=== PATIENT | female | born 1935 | race Caucasian/White ===

== ENCOUNTER 2016-09-25 08:06 | Outpatient (CLI) | payer MEDICARE | END 2016-09-25 08:07 | disposition home or self-care (01) | DX: E11.9 Type 2 diabetes mellitus without complications (principal) ==

== ENCOUNTER 2016-10-10 08:21 | Outpatient (CLI) | payer MEDICARE | END 2016-10-10 08:22 | disposition home or self-care (01) | DX: Z12.31 Encounter for screening mammogram for malignant neoplasm of breast (principal) ==

== ENCOUNTER 2016-10-19 10:27 | Outpatient (CLI) | payer MEDICARE | END 2016-10-19 10:28 | disposition home or self-care (01) | DX: M19.071 Primary osteoarthritis, right ankle and foot (principal) ==

== ENCOUNTER 2017-10-05 08:00 | Outpatient (CLI) | payer MEDICARE ==
[2017-10-05 12:38] LABS: EOSINOPHILS # (AUTO) 0.3 10^3/uL (0.0-0.7); EOSINOPHILS % (AUTO) 7.9 %; HGB - HEMOGLOBIN 12.5 g/dL (12.0-16.0); LYMPHOCYTES # (AUTO) 1.7 10^3/uL (1.5-3.5); LYMPHOCYTES % (AUTO) 39.9 %; MEAN CORPUSCULAR HEMOGLOBIN 27.1 pg (27.0-31.0); MEAN CORPUSCULAR HGB CONC 32.9 g/dL (32.0-36.0); MEAN CORPUSCULAR VOLUME 82.3 fL (81.0-99.0); MEAN PLATELET VOLUME 8.3 fL (7.9-10.8); MONOCYTES # (AUTO) 0.3 10^3/uL (0.0-1.0); MONOCYTES % (AUTO) 7.7 %; NEUTROPHILS # (AUTO) 1.8 10^3/uL (1.5-6.6); NEUTROPHILS % (AUTO) 43.5 %; PLT - PLATELET COUNT 212 10^3/uL (130-450); RED BLOOD COUNT 4.61 10^6/uL (4.20-5.40); RED CELL DISTRIBUTION WIDTH 15.3 % (12.0-15.0); WHITE BLOOD COUNT 4.2 x10^3/uL (4.8-10.8)
[2017-10-05 13:19] LABS: ALBUMIN 3.7 g/dL (3.2-5.5); ALBUMIN/GLOBULIN RATIO 1.3 (1.0-2.2); ALKALINE PHOSPHATASE 52 IU/L (42-121); ALT ALANINE AMINOTRANSFERASE 18 IU/L (10-60); AST ASPARTATE AMINOTRANSFERASE 20 IU/L (10-42); BILIRUBIN,TOTAL 0.5 mg/dL (0.2-1.0); BUN - BLOOD UREA NITROGEN 18 mg/dL (6-20); CALCIUM 8.9 mg/dL (8.5-10.3); CARBON DIOXIDE - CO2 26 mmol/L (21-32); CHLORIDE 106 mmol/L (101-111); CHOL/HDL RATIO 3.1 (<4.4); CHOLESTEROL 190 mg/dL; CREATININE 0.8 mg/dL (0.4-1.0); GFR - MDRD 69 (>89); GLUCOSE 100 mg/dL (70-100); HDL CHOLESTEROL 61 mg/dL; LDL CHOLESTEROL,CALCULATED 108 mg/dL; LDL/HDL RATIO 1.8 (<4.4); SODIUM 138 mmol/L (135-145); TOTAL PROTEIN 6.6 g/dL (6.7-8.2); VLDL CHOLESTEROL 21 mg/dL
[2017-10-05 13:24] LABS: HB2 TOTAL 13.6 g/dL; HEMOGLOBIN A1C 0.54 g/dL; HEMOGLOBIN A1C % 5.8 % (4.6-6.2)
== END 2017-10-05 08:01 | disposition home or self-care (01) ==
LOC: LAB.WCP 08:00
PROVIDERS: ATTEND Physician Assistant Medical
DX: E11.9 Type 2 diabetes mellitus without complications (principal); K52.9 Noninfective gastroenteritis and colitis, unspecified
CPT/HCPCS: 36415; 80053; 80061; 82043; 83036; 83721; 85025

== ENCOUNTER 2018-04-01 08:29 | Outpatient (CLI) | payer MEDICARE ==
[2018-04-01 13:15] LABS: ALBUMIN 3.7 g/dL (3.2-5.5); ALBUMIN/GLOBULIN RATIO 1.2 (1.0-2.2); BILIRUBIN,TOTAL 0.6 mg/dL (0.2-1.0); CALCIUM 8.9 mg/dL (8.5-10.3); CREATININE 0.8 mg/dL (0.4-1.0); TOTAL PROTEIN 6.8 g/dL (6.7-8.2)
[2018-04-01 14:02] LABS: HB2 TOTAL 13.8 g/dL; HEMOGLOBIN A1C 0.5 g/dL; HEMOGLOBIN A1C % 5.5 % (4.6-6.2)
== END 2018-04-01 08:30 | disposition home or self-care (01) ==
LOC: LAB.WCP 08:29
PROVIDERS: ATTEND Physician Assistant Medical
DX: E11.9 Type 2 diabetes mellitus without complications (principal)
CPT/HCPCS: 36415; 80053; 80061; 83036; 83721

== ENCOUNTER 2018-10-10 07:22 | Outpatient (CLI) | payer MEDICARE ==
[2018-10-10 12:48] LABS: BASOPHILS % (AUTO) 0.9 %; EOSINOPHILS # (AUTO) 0.4 10^3/uL (0.0-0.7); EOSINOPHILS % (AUTO) 7.8 %; HGB - HEMOGLOBIN 12.5 g/dL (12.0-16.0); LYMPHOCYTES # (AUTO) 2.1 10^3/uL (1.5-3.5); LYMPHOCYTES % (AUTO) 39.8 %; MEAN CORPUSCULAR HEMOGLOBIN 26.3 pg (27.0-31.0); MEAN CORPUSCULAR HGB CONC 33.1 g/dL (32.0-36.0); MEAN CORPUSCULAR VOLUME 79.7 fL (81.0-99.0); MEAN PLATELET VOLUME 8.3 fL (7.9-10.8); MONOCYTES # (AUTO) 0.4 10^3/uL (0.0-1.0); MONOCYTES % (AUTO) 7.8 %; NEUTROPHILS # (AUTO) 2.3 10^3/uL (1.5-6.6); NEUTROPHILS % (AUTO) 43.7 %; PLT - PLATELET COUNT 217 10^3/uL (130-450); RED BLOOD COUNT 4.73 10^6/uL (4.20-5.40); RED CELL DISTRIBUTION WIDTH 16.6 % (12.0-15.0); WHITE BLOOD COUNT 5.2 x10^3/uL (4.8-10.8)
[2018-10-10 13:30] LABS: ALBUMIN 3.5 g/dL (3.2-5.5); ALBUMIN/GLOBULIN RATIO 1.1 (1.0-2.2); ALKALINE PHOSPHATASE 61 IU/L (42-121); ALT ALANINE AMINOTRANSFERASE 18 IU/L (10-60); AST ASPARTATE AMINOTRANSFERASE 21 IU/L (10-42); BILIRUBIN,TOTAL 0.8 mg/dL (0.2-1.0); BUN - BLOOD UREA NITROGEN 16 mg/dL (6-20); CALCIUM 9.1 mg/dL (8.5-10.3); CARBON DIOXIDE - CO2 26 mmol/L (21-32); CHLORIDE 104 mmol/L (101-111); CHOL/HDL RATIO 3.1 (<4.4); CHOLESTEROL 199 mg/dL; CREATININE 0.8 mg/dL (0.4-1.0); GFR - MDRD 69 (>89); GLUCOSE 89 mg/dL (70-100); HDL CHOLESTEROL 65 mg/dL; LDL CHOLESTEROL,CALCULATED 107 mg/dL; LDL/HDL RATIO 1.6 (<4.4); SODIUM 142 mmol/L (135-145); TOTAL PROTEIN 6.7 g/dL (6.7-8.2); VLDL CHOLESTEROL 27 mg/dL
[2018-10-10 14:30] LABS: HB2 TOTAL 13.1 g/dL; HEMOGLOBIN A1C 0.5 g/dL; HEMOGLOBIN A1C % 5.6 % (4.6-6.2)
== END 2018-10-10 07:23 | disposition home or self-care (01) ==
LOC: LAB.WCP 07:22
PROVIDERS: ATTEND Physician Assistant Medical
DX: E78.5 Hyperlipidemia, unspecified (principal); E11.9 Type 2 diabetes mellitus without complications; K52.9 Noninfective gastroenteritis and colitis, unspecified
CPT/HCPCS: 36415; 80053; 80061; 83036; 83721; 84443; 85025

== ENCOUNTER 2018-10-14 10:11 | Outpatient (CLI) | payer MEDICARE ==
--- NOTE | 2018-10-14 10:55 | XRAY Report ---
Reason: ARTHRITIS Procedure Date: 10/14/2018 Accession Number: [id number] Procedure: WCP - Hand 2 View BILAT CPT Code: FULL RESULT: EXAMS: 1. RIGHT HAND RADIOGRAPHY 2. LEFT HAND RADIOGRAPHY EXAM DATE: 10/14/2018 10:22 AM. CLINICAL HISTORY: Arthritis. COMPARISON: None. TECHNIQUE: 2 views each hand. FINDINGS: Right: Bones: Normal. No fractures or bone lesions. Joints: Marked joint space narrowing predominantly in the distal and proximal interphalangeal joints as well as degenerative changes in the first metacarpophalangeal joint mild to moderate. Soft Tissues: Normal. No soft tissue swelling. Left: Bones: Normal. No fractures or bone lesions. Joints: Marked joint space narrowing predominantly in the distal and proximal interphalangeal joints as well as degenerative changes in the first metacarpophalangeal joint mild to moderate. Soft Tissues: Normal. No soft tissue swelling. IMPRESSION: Bilateral interphalangeal joint predominant joint space narrowing, moderate to severe. RADIA
== END 2018-10-14 10:12 | disposition home or self-care (01) ==
LOC: DI.WCP 10:11
PROVIDERS: ATTEND Physician Assistant Medical
DX: M19.042 Primary osteoarthritis, left hand (principal); M19.041 Primary osteoarthritis, right hand

== ENCOUNTER 2019-01-07 08:00 | Outpatient (CLI) | payer MEDICARE ==
[2019-01-07 13:33] LABS: BUN - BLOOD UREA NITROGEN 21 mg/dL (6-20); CARBON DIOXIDE - CO2 25 mmol/L (21-32); CHLORIDE 107 mmol/L (101-111); CHOL/HDL RATIO 2.6 (<4.4); CHOLESTEROL 177 mg/dL; CREATININE 0.8 mg/dL (0.4-1.0); GFR - MDRD 69 (>89); GLUCOSE 96 mg/dL (70-100); HDL CHOLESTEROL 67 mg/dL; LDL CHOLESTEROL,CALCULATED 87 mg/dL; LDL/HDL RATIO 1.3 (<4.4); SODIUM 141 mmol/L (135-145); VLDL CHOLESTEROL 23 mg/dL
[2019-01-07 13:42] LABS: HB2 TOTAL 12.3 g/dL; HEMOGLOBIN A1C 0.53 g/dL; HEMOGLOBIN A1C % 6.1 % (4.6-6.2)
== END 2019-01-07 08:01 | disposition home or self-care (01) ==
LOC: LAB.WCP 08:00
PROVIDERS: ATTEND Physician Assistant Medical
DX: E11.9 Type 2 diabetes mellitus without complications (principal)
CPT/HCPCS: 36415; 80048; 80061; 83036; 83721

== ENCOUNTER 2019-07-03 20:49 | Outpatient (CLI) | payer MEDICARE ==
--- NOTE | 2019-07-04 08:47 | Ultrasound Report ---
Reason: ABD PAIN Procedure Date: 07/03/2019 Accession Number: [id number] / [id number] Procedure: US - Abdomen Limited CPT Code: Final Report FULL RESULT: EXAM: ABDOMEN LIMITED EXAM DATE: 07/03/2019 09:54 PM INDICATION: ABD PAIN. COMPARISONS: ABDOMEN/PELVIS W/WO 10/31/2012 1:57 PM. TECHNIQUE: Real-time scanning was performed with static images obtained. FINDINGS: Liver: Liver parenchyma is heterogeneous and moderately hyperechoic. No discrete liver masses or intrahepatic bile duct dilation. However, evaluation for masses is limited secondary to the echogenicity. Right liver measures 13.4 cm. Main portal vein flow: Hepatopetal. Gallbladder: Surgically absent. Biliary System: CBD measures 6 mm. No intrahepatic or extrahepatic ductal dilatation. Pancreas: Distal pancreas not well-seen. Limitations secondary to bowel gas. Remaining pancreas unremarkable. Right kidney: 8.8 cm. No hydronephrosis. Abdominal aorta and IVC: Normal. Other: None. IMPRESSION: 1. No liver mass or intrahepatic dilation.Moderately echogenic fatty liver. 2. Normal gallbladder and common bile duct. 3. Normal pancreas. RADIA
== END 2019-07-03 20:50 | disposition home or self-care (01) ==
LOC: DI 20:49
PROVIDERS: ATTEND Family Medicine
DX: R10.9 Unspecified abdominal pain (principal); K76.0 Fatty (change of) liver, not elsewhere classified
CPT/HCPCS: 76705

== ENCOUNTER 2019-07-14 09:50 | Outpatient (CLI) | payer MEDICARE | END 2019-07-14 09:51 | disposition critical access hospital (66) | LOC: EMS 09:50 | PROVIDERS: ATTEND Surgery | DX: R06.02 Shortness of breath (principal); R07.9 Chest pain, unspecified; R25.1 Tremor, unspecified | CPT/HCPCS: A0425; A0427 ==

== ENCOUNTER 2019-07-14 10:10 | Emergency (ER) | payer MEDICARE ==
--- NOTE | 2019-07-14 10:28 | ED Physician Documentation ---
PD HPI CHEST PAIN - Stated complaint Stated Complaint: CP - Chief complaint Chief Complaint: Cardiac - History obtained from History obtained from: Patient - History of Present Illness Timing - onset: Today Timing - onset during: Rest Timing - duration: Minutes (1-20) Timing - details: Abrupt onset Pain level now: 0 Quality: Other ("Pin cushions") Location: Left chest Radiation: Back Improved by: Rest, Nitro, ASA Associated symptoms: Shortness of air, Nausea, General Weakness. No: Diaphoresis Similar symptoms before: No diagnosis Recently seen: Not recently seen - Additional information Additional information: This is an 84-year-old woman who presents by ambulance from her primary care provider's office where she presented with complaints of chest pains. She had a couple episodes last week the first 1 being 6 days ago when she woke up from sleep and felt like her heart was kind pounding was having this pincushioning type sensation in her chest and a squeezing between her shoulder blades she woke her up took a Brooke aspirin vomited into the sink sat down on the edge of the bed and the symptoms resolved after about 30 minutes. She was very fatigued the following day. She had another episode 3 days ago that lasted may be 10 minutes and resolve spontaneously and then today she decided to go to her primary care provider's office and as she was waiting in the waiting room she had another episode which point they brought her back gave her 3 baby aspirin and a nitroglycerin tablet. She is never had anything happen like this previously. She was feeling short of breath with it and has been feeling very fatigued she was nauseous and had some vomiting with the prior episodes. Last night she could not sleep because she was having trouble breathing and there was a squeezing funny sensation in her left leg and her left arm just felt very heavy. She denies any history of DVT. She is felt a little dizzy but no loss of consciousness. The patient had to be taken off of metformin due to neuropathy for her diabetes and she is on a newer oral hypoglycemic. Denies history of heart disease. No recent illness. Review of Systems Constitutional: reports: Fatigue. denies: Fever Eyes: reports: Other (She is had intraocular lens implants) Ears: denies: Loss of hearing Nose: denies: Rhinorrhea / runny nose, Congestion Throat: denies: Sore throat Cardiac: reports: Chest pain / pressure. denies: Pedal edema, Calf pain Respiratory: reports: Dyspnea. denies: Cough GI: reports: Nausea, Vomiting. denies: Abdominal Pain : denies: Dysuria Skin: denies: Rash Musculoskeletal: reports: Back pain ("Squeezing" between the shoulder blades) Neurologic: reports: Generalized weakness Endocrine: reports: Other (She is diabetic does not use insulin) Immunocompromised: denies: Immunocompromised PD PAST MEDICAL HISTORY - Allergies Allergies/Adverse Reactions: Allergies Allergy/AdvReac Type Severity Reaction Status Date / Time acetaminophen [From Vicodin] Allergy Rash Verified 07/14/19 10:25 gabapentin Allergy Rash Verified 07/14/19 10:26 hydrocodone [From Vicodin] Allergy Rash Verified 07/14/19 10:25 meloxicam Allergy Rash Verified 07/14/19 10:26 PD ED PE NORMAL - Vitals Vital signs reviewed: Yes - General General: Alert and oriented X 3, No acute distress, Well developed/nourished - HEENT HEENT: Atraumatic, PERRL, EOMI, Moist mucous membranes, Pharynx benign - Neck Neck: Supple, no meningeal sign, No adenopathy - Cardiac Cardiac: RRR, No murmur, No gallop, No rub, Strong equal pulses - Respiratory Respiratory: No respiratory distress, Clear bilaterally - Abdomen Abdomen: Normal bowel sounds, Soft, Non tender, Non distended, No organomegaly - Derm Derm: Normal color, Warm and dry, No rash - Extremities Extremities: No deformity, No edema - Neuro Neuro: Alert and oriented X 3, quick service technician 2-12 intact, No motor deficit, No sensory deficit, Normal speech - Psych Psych: Normal mood, Normal affect Results - Vitals Vitals: Vital Signs - 24 hr 07/14/19 07/14/19 07/14/19 10:21 12:00 14:00 Temperature 36.1 C L Heart Rate 88 67 71 Respiratory 16 17 18 Rate Blood Pressure 194/87 H 166/78 H 156/67 H O2 Saturation 100 96 97 07/14/19 16:00 Temperature Heart Rate 66 Respiratory 17 Rate Blood Pressure 169/76 H O2 Saturation 96 Oxygen O2 Source Room air - EKG (time done) 1012 Rate: Rate (enter#) (70) Rhythm: NSR Intervals: No: Wide QRS Ischemia: Non specific changes Compare to prior EKG: Old EKG unavailable 1502 Rate: Rate (enter#) (61) Rhythm: NSR Intervals: No: Wide QRS Ischemia: Normal ST segments Compare to prior EKG: Changed from prior EKG (The QTc is slightly longer than it was when she was initially here and the nonspecific changes in the lateral leads are essentially gone. There is now T wave flattening V1 V2 and aVL.) - Labs Labs: Laboratory Tests 07/14/19 07/14/19 07/14/19 10:50 10:50 10:50 WBC 6.5 RBC 4.97 Hgb 12.6 Hct 39.9 MCV 80.3 L MCH 25.4 L MCHC 31.6 L RDW 15.4 H Plt Count 244 MPV 9.1 Neut # (Auto) 4.0 Lymph # (Auto) 1.7 Crenshaw # (Auto) 0.5 Eos # (Auto) 0.3 Baso # (Auto) 0.1 Absolute Nucleated RBC 0.00 Nucleated RBC % 0.0 Sodium 139 Potassium 3.7 Chloride 106 Carbon Dioxide 22 Anion Gap 11.0 BUN 16 Creatinine 0.9 Estimated GFR (MDRD) 60 L Glucose 126 H Calcium 9.2 Total Bilirubin 0.6 AST 20 ALT 18 Alkaline Phosphatase 57 Troponin I High Sens 5.2 Total Protein 7.0 Albumin 3.6 Globulin 3.4 Albumin/Globulin Ratio 1.1 Lipase 50 Urine Color Urine Clarity Urine pH Ur Specific Lindley Urine Protein Urine Glucose (UA) Urine Ketones Urine Occult Blood Urine Nitrite Urine Bilirubin Urine Urobilinogen Ur Leukocyte Esterase Urine RBC Urine WBC Ur Squamous Epith Cells Urine Bacteria Ur Microscopic Review Urine Culture Comments 07/14/19 07/14/19 11:25 14:34 WBC RBC Hgb Hct MCV MCH MCHC RDW Plt Count MPV Neut # (Auto) Lymph # (Auto) Crenshaw # (Auto) Eos # (Auto) Baso # (Auto) Absolute Nucleated RBC Nucleated RBC % Sodium Potassium Chloride Carbon Dioxide Anion Gap BUN Creatinine Estimated GFR (MDRD) Glucose Calcium Total Bilirubin AST ALT Alkaline Phosphatase Troponin I High Sens 12.2 Total Protein Albumin Globulin Albumin/Globulin Ratio Lipase Urine Color LT. YELLOW Urine Clarity CLEAR Urine pH 7.0 Ur Specific Lindley <=1.005 Urine Protein NEGATIVE Urine Glucose (UA) NEGATIVE Urine Ketones NEGATIVE Urine Occult Blood NEGATIVE Urine Nitrite NEGATIVE Urine Bilirubin NEGATIVE Urine Urobilinogen 0.2 (NORMAL) Ur Leukocyte Esterase TRACE H Urine RBC None Seen Urine WBC 6-10 H Ur Squamous Epith Cells NONE SEEN Urine Bacteria Few Ur Microscopic Review INDICATED Urine Culture Comments INDICATED - Rads (name of study) CXR Radiology: See rad report PD MEDICAL DECISION MAKING - ED course Complexity details: reviewed results ED course: The EKG shows a rate of 70 there is no acute ST elevation or depression noted. No old EKG available for comparison. Her chest x-ray was clear. The initial troponin is normal. Glucose was mildly elevated. Normal CBC and electrolytes. I think the patient is high risk with symptoms consistent with unstable angina. Discussed with the hospitalist who did accept the patient for admission and the patient was agreeable to the plan. After discussion with the hospitalist it became apparent that there is nobody here tomorrow that can do a stress test on this high risk patient so she was offered transfer to another facility and after discussion with the family they requested transfer to [facility]. When the process of contacting them to see if they have the capacity. [facility] did not have beds available so we are calling [facility]. 1510: spoke with the district sales leader at [facility]. She is agreed to consult with the hospitalist for this patient to be admitted. 3-hour troponin is still pending at this time. The patient was noted to have a urinary tract infection and I have given her dose of Bactrim here. 1716: The hospitalist at [facility] did accept the patient. By the time I had her on the phone we had the triage 3-hour troponin returned and it had risen to 12 from 5. Patient remained pain-free. She has been accepted in transfer and we are waiting ALS ground transport. Plan was discussed with the family and they are all in agreement for the transport. Departure - Departure Disposition: 02 Transfer Acute Care Hosp Clinical Impression: Chest pain Qualifiers: Chest pain type: chest pain due to myocardial ischemia Ischemic chest pain type: unstable angina pectoris Qualified Code(s): I20.0 - Unstable angina Condition: Good
[2019-07-14 10:54] LABS: BASOPHILS # (AUTO) 0.1 10^3/uL (0.0-0.1); BASOPHILS % (AUTO) 0.8 %; EOSINOPHILS # (AUTO) 0.3 10^3/uL (0.0-0.7); EOSINOPHILS % (AUTO) 4.8 %; HGB - HEMOGLOBIN 12.6 g/dL (12.0-16.0); LYMPHOCYTES # (AUTO) 1.7 10^3/uL (1.5-3.5); LYMPHOCYTES % (AUTO) 25.5 %; MEAN CORPUSCULAR HEMOGLOBIN 25.4 pg (27.0-31.0); MEAN CORPUSCULAR HGB CONC 31.6 g/dL (32.0-36.0); MEAN CORPUSCULAR VOLUME 80.3 fL (81.0-99.0); MEAN PLATELET VOLUME 9.1 fL (7.9-10.8); MONOCYTES # (AUTO) 0.5 10^3/uL (0.0-1.0); MONOCYTES % (AUTO) 7.7 %; NEUTROPHILS % (AUTO) 60.9 %; PLT - PLATELET COUNT 244 10^3/uL (130-450); RED BLOOD COUNT 4.97 10^6/uL (4.20-5.40); RED CELL DISTRIBUTION WIDTH 15.4 % (12.0-15.0); WHITE BLOOD COUNT 6.5 x10^3/uL (4.8-10.8)
[2019-07-14 11:19] LABS: ALBUMIN 3.6 g/dL (3.2-5.5); ALBUMIN/GLOBULIN RATIO 1.1 (1.0-2.2); BILIRUBIN,TOTAL 0.6 mg/dL (0.2-1.0); CALCIUM 9.2 mg/dL (8.5-10.3); CREATININE 0.9 mg/dL (0.4-1.0)
--- NOTE | 2019-07-14 11:42 | XRAY Report ---
Reason: Chest pain Procedure Date: 07/14/2019 Accession Number: [id number] / [id number] Procedure: XR - Chest 1 View X-Ray CPT Code: 77452 Final Report FULL RESULT: EXAM: CHEST RADIOGRAPHY EXAM DATE: 07/14/2019 11:04 AM. CLINICAL HISTORY: Chest pain. COMPARISON: XR CHEST PA AND LAT 09/22/2011 5:38 AM. TECHNIQUE: 1 view. FINDINGS: Lungs/Pleura: No focal opacities evident. No pleural effusion. No pneumothorax. Mediastinum: Within exam limitations, the cardiomediastinal contour is normal. Other: None. IMPRESSION: Normal single view chest. RADIA
[2019-07-14 11:46] LABS: BILIRUBIN,URINE NEGATIVE (NEGATIVE); CLARITY,URINE CLEAR (CLEAR); GLUCOSE, URINE (UA) NEGATIVE (NEGATIVE); KETONES,URINE (UA) NEGATIVE (NEGATIVE); LEUKOCYTE ESTERASE, URINE TRACE (NEGATIVE); NITRITE,URINE NEGATIVE (NEGATIVE); OCCULT BLOOD,URINE NEGATIVE (NEGATIVE); PROTEIN,URINE NEGATIVE (NEGATIVE); UROBILINOGEN,URINE 0.2 (NORMAL) E.U./dL (NORMAL)
[2019-07-14 11:56] LABS: BACTERIA,URINE Few /HPF (None Seen); RBC,URINE None Seen /HPF (0-5); SQUAMOUS EPITHELIAL CELL,UR NONE SEEN (<= Few)
[2019-07-14] MEDS ORDERED: SULFAMETH/TRIMETH DS 800/160 MG TABLET PO STA (15:08)
[2019-07-14 18:10] VITALS: BP 116/74
== END 2019-07-14 18:58 | disposition short-term general hospital (02) ==
LOC: EDUNIT# → ED 10:10
DX: I20.0 Unstable angina (principal); E11.40 Type 2 diabetes mellitus with diabetic neuropathy, unspecified; Z79.84 Long term (current) use of oral hypoglycemic drugs
CPT/HCPCS: 36415; 71045; 80053; 81001; 83690; 84484; 85025; 87086; 87181; 93005; 99284; 99285; A9270; 81003

== ENCOUNTER 2019-07-14 19:02 | Outpatient (CLI) | payer MEDICARE | END 2019-07-14 19:03 | disposition short-term general hospital (02) | LOC: EMS 19:02 | PROVIDERS: ATTEND Surgery | DX: I20.0 Unstable angina (principal) | CPT/HCPCS: A0425; A0426 ==

== ENCOUNTER 2019-08-04 09:29 | Outpatient (CLI) | payer MEDICARE ==
[2019-08-04] MEDS ORDERED: IOVERSOL 320 100 ML VIAL IVP ONE ×2 (09:39→11:34)
[2019-08-04] MEDS ORDERED: IOVERSOL 320 50 ML VIAL ONE (09:39)
[2019-08-04] MEDS ORDERED: IOVERSOL 320 50 ML VIAL PO ONE (11:34)
--- NOTE | 2019-08-05 12:28 | CT Report ---
Reason: ABD PAIN Procedure Date: 08/04/2019 Accession Number: [id number] / [id number] Procedure: CT - Abdomen/Pelvis W CPT Code: Final Report FULL RESULT: EXAM: CT ABDOMEN AND PELVIS EXAM DATE: 08/04/2019 10:47 AM. CLINICAL HISTORY: ABD PAIN. COMPARISONS: ABDOMEN/PELVIS W/WO 10/31/2012 1:57 PM. TECHNIQUE: Routine helical CT imaging was performed through the abdomen and pelvis. IV contrast: OPTI 320 100ML. Enteric contrast: No. Reconstructions: Coronal and sagittal. In accordance with CT protocol optimization, one or more of the following dose reduction techniques were utilized for this exam: automated exposure control, adjustment of mA and/or KV based on patient size, or use of iterative reconstructive technique. FINDINGS: Lung Bases: Calcified lateral right lower lobe granuloma, as on prior study. Calcified right infrahilar lymph nodes from remote granulomatous disease. Liver: Normal. No masses. Gallbladder/Bile Ducts: Prior cholecystectomy. Spleen: Lobular medial splenic contour versus splenule appears unchanged. No suspicious splenic mass. Pancreas: Normal. Adrenal Glands: Normal. Kidneys: Stable 8 mm posterior left renal hypodensity, probable small cyst. No suspicious masses or hydronephrosis. Peritoneal Cavity/Bowel: Colonic diverticulosis, with numerous sigmoid diverticula. No focal inflammation demonstrated. Appendix not identified. Prior ventral abdominal wall repair. Pelvic Organs: Prior hysterectomy. Bladder is partially distended and grossly unremarkable. Vasculature: No aneurysms or other significant abnormality. Bones: Advanced lumbar spine degenerative changes. Probable right L5 vertebral body bone island appears unchanged. No fracture demonstrated. Convex left lumbar scoliosis. Bilateral hip joint space narrowing from degenerative change. No dislocation. Other: None. IMPRESSION: 1. Diverticulosis. No diverticulitis or acute inflammatory process evident. 2. Additional chronic findings noted above. RADIA
== END 2019-08-04 09:30 | disposition home or self-care (01) ==
LOC: DI 09:29
PROVIDERS: ATTEND Family Medicine
DX: K57.30 Diverticulosis of large intestine without perforation or abscess without bleeding (principal); R10.9 Unspecified abdominal pain
CPT/HCPCS: 74177; Q9967

== ENCOUNTER 2020-02-13 09:28 | Outpatient (CLI) | payer MEDICARE | END 2020-02-13 09:29 | disposition home or self-care (01) | LOC: RT 09:28 | PROVIDERS: ATTEND Physician Assistant Medical | DX: R06.09 Other forms of dyspnea (principal) | CPT/HCPCS: 94010; 94729 ==

== ENCOUNTER 2020-03-23 08:00 | Outpatient (CLI) | payer MEDICARE ==
[2020-03-23 13:10] LABS: BASOPHILS # (AUTO) 0.1 10^3/uL (0.0-0.1); BASOPHILS % (AUTO) 0.8 %; EOSINOPHILS # (AUTO) 0.4 10^3/uL (0.0-0.7); EOSINOPHILS % (AUTO) 6.3 %; HGB - HEMOGLOBIN 11.7 g/dL (12.0-16.0); LYMPHOCYTES # (AUTO) 2.1 10^3/uL (1.5-3.5); LYMPHOCYTES % (AUTO) 36.3 %; MEAN CORPUSCULAR HEMOGLOBIN 24.3 pg (27.0-31.0); MEAN CORPUSCULAR HGB CONC 29.9 g/dL (32.0-36.0); MEAN CORPUSCULAR VOLUME 81.3 fL (81.0-99.0); MONOCYTES # (AUTO) 0.5 10^3/uL (0.0-1.0); MONOCYTES % (AUTO) 7.8 %; NEUTROPHILS # (AUTO) 2.9 10^3/uL (1.5-6.6); NEUTROPHILS % (AUTO) 48.6 %; PLT - PLATELET COUNT 258 10^3/uL (130-450); RED BLOOD COUNT 4.81 10^6/uL (4.20-5.40); WHITE BLOOD COUNT 5.9 x10^3/uL (4.8-10.8)
[2020-03-23 13:35] LABS: CREATININE,URINE 132.2 mg/dL; MICROALBUM/CREATININE RATIO,UR 9.8 ug/mg (<30.0); MICROALBUMIN,URINE 1.3 mg/dL (0-300.0)
[2020-03-23 13:39] LABS: HEMOGLOBIN A1c% 6.5 % (4.27-6.07)
[2020-03-23 13:40] LABS: ALBUMIN 3.7 g/dL (3.2-5.5); ALBUMIN/GLOBULIN RATIO 1.1 (1.0-2.2); ALKALINE PHOSPHATASE 60 IU/L (42-121); ALT ALANINE AMINOTRANSFERASE 19 IU/L (10-60); AST ASPARTATE AMINOTRANSFERASE 21 IU/L (10-42); BILIRUBIN,TOTAL 0.8 mg/dL (0.2-1.0); BUN - BLOOD UREA NITROGEN 19 mg/dL (6-20); CALCIUM 9.2 mg/dL (8.5-10.3); CARBON DIOXIDE - CO2 25 mmol/L (21-32); CHLORIDE 106 mmol/L (101-111); CHOLESTEROL 160 mg/dL; CREATININE 0.8 mg/dL (0.4-1.0); GLUCOSE 105 mg/dL (70-100); HDL CHOLESTEROL 79 mg/dL; LDL CHOLESTEROL,CALCULATED 62 mg/dL; LDL/HDL RATIO 0.8 (<4.4); SODIUM 140 mmol/L (135-145); VLDL CHOLESTEROL 19 mg/dL
== END 2020-03-23 23:59 | disposition home or self-care (01) ==
LOC: LAB.WCP 08:00
PROVIDERS: ATTEND Physician Assistant Medical
DX: E11.9 Type 2 diabetes mellitus without complications (principal); E78.5 Hyperlipidemia, unspecified; K52.9 Noninfective gastroenteritis and colitis, unspecified
CPT/HCPCS: 36415; 80053; 80061; 82043; 82570; 83036; 83721; 84443; 85025

== ENCOUNTER 2020-08-10 07:56 | Outpatient (CLI) | payer MEDICARE ==
[2020-08-10 08:10] LABS: BASOPHILS # (AUTO) 0.1 10^3/uL (0.0-0.1); BASOPHILS % (AUTO) 0.9 %; EOSINOPHILS # (AUTO) 0.4 10^3/uL (0.0-0.7); EOSINOPHILS % (AUTO) 7.8 %; HGB - HEMOGLOBIN 11.4 g/dL (12.0-16.0); LYMPHOCYTES # (AUTO) 2.3 10^3/uL (1.5-3.5); LYMPHOCYTES % (AUTO) 42.3 %; MEAN CORPUSCULAR HEMOGLOBIN 23.8 pg (27.0-31.0); MEAN CORPUSCULAR VOLUME 79.3 fL (81.0-99.0); MEAN PLATELET VOLUME 9.2 fL (7.9-10.8); MONOCYTES # (AUTO) 0.4 10^3/uL (0.0-1.0); MONOCYTES % (AUTO) 7.4 %; NEUTROPHILS # (AUTO) 2.2 10^3/uL (1.5-6.6); NEUTROPHILS % (AUTO) 41.4 %; PLT - PLATELET COUNT 226 10^3/uL (130-450); RED BLOOD COUNT 4.79 10^6/uL (4.20-5.40); RED CELL DISTRIBUTION WIDTH 16.5 % (12.0-15.0); WHITE BLOOD COUNT 5.4 x10^3/uL (4.8-10.8)
[2020-08-10 08:29] LABS: ALBUMIN 3.7 g/dL (3.2-5.5); ALBUMIN/GLOBULIN RATIO 1.1 (1.0-2.2); ALKALINE PHOSPHATASE 66 IU/L (42-121); ALT ALANINE AMINOTRANSFERASE 19 IU/L (10-60); AST ASPARTATE AMINOTRANSFERASE 20 IU/L (10-42); BILIRUBIN,TOTAL 0.6 mg/dL (0.2-1.0); BUN - BLOOD UREA NITROGEN 14 mg/dL (6-20); CALCIUM 9.2 mg/dL (8.5-10.3); CARBON DIOXIDE - CO2 25 mmol/L (21-32); CHLORIDE 106 mmol/L (101-111); CHOL/HDL RATIO 2.5 (<4.4); CHOLESTEROL 169 mg/dL; CREATININE 0.8 mg/dL (0.4-1.0); GLUCOSE 107 mg/dL (70-100); HDL CHOLESTEROL 68 mg/dL; LDL CHOLESTEROL,CALCULATED 81 mg/dL; LDL/HDL RATIO 1.2 (<4.4); VLDL CHOLESTEROL 20 mg/dL
[2020-08-10 11:30] LABS: HEMOGLOBIN A1c% 6.3 % (4.27-6.07)
== END 2020-08-10 07:57 | disposition home or self-care (01) ==
LOC: LAB 07:56
PROVIDERS: ATTEND Family Medicine
DX: K21.9 Gastro-esophageal reflux disease without esophagitis (principal); E11.9 Type 2 diabetes mellitus without complications; I48.0 Paroxysmal atrial fibrillation; E78.5 Hyperlipidemia, unspecified; I25.10 Atherosclerotic heart disease of native coronary artery without angina pectoris; Z90.710 Acquired absence of both cervix and uterus
CPT/HCPCS: 36415; 80053; 80061; 83036; 83721; 84443; 85025

== ENCOUNTER 2023-02-24 10:14 | Outpatient (CLI) | payer MEDICARE | END 2023-02-24 10:15 | disposition critical access hospital (66) | LOC: EMS 10:14 | DX: S01.81XA Laceration without foreign body of other part of head, initial encounter (principal); S01.20XA Unspecified open wound of nose, initial encounter; H53.8 Other visual disturbances; M54.2 Cervicalgia; W01.198A Fall on same level from slipping, tripping and stumbling with subsequent striking against other object, initial encounter; Y93.01 Activity, walking, marching and hiking; Y92.008 Other place in unspecified non-institutional (private) residence as the place of occurrence of the external cause; Z79.01 Long term (current) use of anticoagulants | CPT/HCPCS: A0425; A0429 ==

== ENCOUNTER 2023-02-24 10:31 | Emergency (ER) | payer MEDICARE ==
--- NOTE | 2023-02-24 11:39 | CT Report ---
PROCEDURE: HEAD WO INDICATIONS: fall on eliquis TECHNIQUE: Noncontrast 4.5 mm thick angled axial sections acquired from the foramen magnum to the vertex. For r adiation dose reduction, the following was used: automated exposure control, adjustment of mA and/or kV according to patient size. COMPARISON: None. FINDINGS: Image quality: Excellent. CSF spaces: Basal cisterns are patent. No extra-axial fluid collections. Ventricles are normal in size and shape. Brain: No midline shift. No intracranial masses or hemorrhage. Morrow-white matter interface is norm al. Skull and face: Forehead laceration can be seen, with hematoma and soft tissue gas. Overlying bandagi ng material can be seen. No displaced calvarial fracture is seen. Calvarium and visualized facial bon es are intact, without suspicious lesions. Hyperostosis frontalis is incidentally noted, which is no t frankly abnormal for a female patient of this age. Sinuses: Visualized sinuses and mastoids are clear. IMPRESSION: Forehead laceration, with hematoma and soft tissue gas. Negative for a displaced calvarial fracture. No intracranial hemorrhage is seen. No significant intracranial abnormality is seen. Reviewed by: Bennett Crockett MD on 02/24/2023 10:38 AM XOCHILT Approved by: Bennett Crockett MD on 02/24/2023 10:38 AM XOCHILT Station ID: [id number]
--- NOTE | 2023-02-24 11:42 | CT Report ---
PROCEDURE: MAXILLOFACIAL WO INDICATIONS: fall on eliquis TECHNIQUE: Noncontrast 1.5 mm thick axial images acquired from the mandible through the frontal sinuses, with co rosanne and sagittal reformatting. For radiation dose reduction, the following was used: automated ex posure control, adjustment of mA and/or kV according to patient size. COMPARISON: Correlation is made with the accompanying CT examinations. FINDINGS: Image quality: Excellent. Bones and teeth: Orbital lewis are intact. Sinus lewis show no fracture or deformity. Nasal bones and septum are intact. Chronic mild leftward nasal septal deviation can be seen. Visualized portions of the mandible demonstrate no fractures or subluxation. Zygomatic arches are intact. Pterygoid pl ates are intact. Visualized portions of the skull base and auditory canals are intact. Sinuses: Moderate mucosal thickening can be seen within the inferior right maxillary sinus. The paran rafita sinuses are otherwise within normal limits. The ostiomeatal complexes are patent, yet they are c onstitutionally narrowed, with bilateral Jam cells. Soft tissues: Forehead laceration with hematoma and soft tissue gas can be seen. Vascular: Visualized vascular structures appear normal in the absence of contrast. Bony vascular fo ramina and canals are intact. IMPRESSION: No displaced facial bone fracture can be seen. A forehead laceration is seen, with soft tissue gas and hematoma. Reviewed by: Bennett Crockett MD on 02/24/2023 10:40 AM XOCHILT Approved by: Bennett Crockett MD on 02/24/2023 10:40 AM XOCHILT Station ID: [id number]
--- NOTE | 2023-02-24 11:43 | CT Report ---
PROCEDURE: CERVICAL SPINE WO INDICATIONS: fall on eliquis TECHNIQUE: Noncontrast 3 mm thick sections acquired from the skull base to the T4 level. Sagittal and coronal r eformats were then constructed. For radiation dose reduction, the following was used: automated exp osure control, adjustment of mA and/or kV according to patient size. COMPARISON: Correlation is made with the accompanying CT examinations. FINDINGS: Image quality: Excellent. Bones: No anatoly acute fractures or dislocations. Along the anterior inferior aspect of the T6 level , there is a fragmented osteophyte seen, as on series 6 image 43. This process has a chronic appearan ce. Visualized superior ribs are intact. At least moderate degenerative change can be seen throughout. Soft tissues: Calcification can be seen posterior to the dens. Prevertebral soft tissues are normal in thickness. No paravertebral hematomas. No apical pneumothoraces. IMPRESSION: Negative for acute cervical spine fracture. At least moderate underlying cervical spine degenerative change can be seen. Reviewed by: Bennett Crockett MD on 02/24/2023 10:42 AM XOCHILT Approved by: Bennett Crockett MD on 02/24/2023 10:42 AM XOCHILT Station ID: [id number]
[2023-02-24] MEDS ORDERED: LIDOCAINE MPF 1%-EPI 1:200000 10 ML VIAL SUBQ STA (11:47)
[2023-02-24] MEDS ORDERED: MORPHINE 2 MG/ML CARPUJECT IVP STA (11:47)
[2023-02-24] MEDS ORDERED: LIDOCAINE 2%-EPI 1:100000 20 ML MDV SUBQ STA (11:47)
--- NOTE | 2023-02-24 11:52 | ED Physician Documentation ---
History of Present Illness - Stated complaint Stated Complaint: GLF - Chief complaint Chief Complaint: Trauma Hd/Nk - History obtained from History obtained from: Patient, Family, EMS - History of Present Illness Timing: Today Pain level max: 7 Pain level now: 6 - Additonal information Additional information: Patient is an 87-year-old female who presents to the emergency department after ground-level fall today, struck her forehead on a concrete step. Unclear if she lost consciousness or not. No vomiting. No seizure activity. She is on Eliquis. Has a laceration to the forehead. No vision changes. No abdominal pain, chest pain, hip pain, back pain. Review of Systems Constitutional: denies: Fever, Chills Nose: denies: Rhinorrhea / runny nose, Congestion : denies: Dysuria Skin: denies: Rash Musculoskeletal: denies: Neck pain, Back pain Neurologic: denies: Focal weakness, Confused, Altered mental status PD PAST MEDICAL HISTORY - Past Medical History Past Medical History: Yes Cardiovascular: High cholesterol Endocrine/Autoimmune: Type 2 diabetes - Past Surgical History General: Cholecystectomy, Appendectomy, Bowel surgery Ortho: Knee replacement /W[employer]: Hysterectomy HEENT: Cataracts - Present Medications Home Medications: Ambulatory Orders Medication Instructions Recorded Confirmed Amiodarone [Pacerone] 200 mg PO DAILY 02/24/23 02/24/23 Apixaban [Eliquis] 5 mg PO BID 02/24/23 02/24/23 Atorvastatin Calcium 40 mg PO DAILY 02/24/23 02/24/23 Losartan [Cozaar] 25 mg PO DAILY 02/24/23 02/24/23 Spironolactone [Aldactone] 25 mg PO DAILY 02/24/23 02/24/23 dilTIAZem HCL [Diltiazem 24Hr ER] 120 mg PO DAILY 02/24/23 02/24/23 traMADol [Ultram] 50 - 100 mg PO Q6H PRN #14 tablet 02/24/23 - Allergies Allergies/Adverse Reactions: Allergies Allergy/AdvReac Type Severity Reaction Status Date / Time acetaminophen [From Vicodin] Allergy Rash Verified 02/24/23 10:48 gabapentin Allergy Rash Verified 02/24/23 10:48 hydrocodone [From Vicodin] Allergy Rash Verified 02/24/23 10:48 meloxicam Allergy Rash Verified 09/02/23 10:48 - Social History Does the pt smoke?: No Smoking Status: Never smoker Does the pt drink ETOH?: No Does the pt have substance abuse?: No - Immunizations Immunizations: TDAP >10years/unknown PD ED PE NORMAL - Vitals Vital signs reviewed: Yes - General General: Alert and oriented X 3, No acute distress - HEENT HEENT: PERRL, EOMI, Ears normal, Moist mucous membranes, Other (Large stellate forehead laceration. Mild periorbital ecchymosis.) - Neck Neck: Supple, no meningeal sign, Other (Mild upper C-spine tenderness to palpation. No step-off or deformity) - Cardiac Cardiac: RRR, Strong equal pulses - Respiratory Respiratory: No respiratory distress, Clear bilaterally - Abdomen Abdomen: Soft, Non tender, Non distended - Back Back: No spinal TTP - Derm Derm: Warm and dry - Extremities Extremities: Other (Small contusion of the right knee. Full range of motion. Full weightbearing. Normal gait.) - Neuro Neuro: Alert and oriented X 3, ice cream scooper 2-12 intact, No motor deficit, No sensory deficit, Normal speech Eye Opening: Spontaneous Motor: Obeys Commands Verbal: Oriented GCS Score: 15 Results - Vitals Vitals: Vital Signs - 24 hr 02/24/23 02/24/23 10:44 13:01 Temperature 36.6 C Heart Rate 70 77 Respiratory 18 18 Rate Blood Pressure 157/79 H 165/82 H O2 Saturation 96 100 Oxygen O2 Source Room air - Rads (name of study) head CT Relevant Findings:: Final report received, See rad report maxillofacial CT Relevant Findings:: Final report received, See rad report cervical spine CT Relevant Findings:: Final report received, See rad report Procedures - Laceration (location) forehead Length in cm: 6 Wound type: Stellate, Irregular, Into subcut fat, Into muscle, Clean Neurovascular status: Sensory intact, Motor intact, Vascular intact Anesthesia: Lidocaine 1% with epi Wound preparation: Irrigated copiously NS, Wound explored, To the base Skin layer closure: Nylon, Interrupted, Size #-0 - enter number (4) Other: Patient tolerated well, No complications, Neurovascular intact, Dressing applied, Tetanus booster given PD Medical Decision Making - ED course Complexity details: reviewed results, re-evaluated patient, considered differential, d/w patient, d/w family ED course: -year-old female status post ground-level fall. No acute findings on head CT, cervical spine CT or maxillofacial CT. Laceration was cleansed and repaired. Tolerated well. Tdap given. Ambulating without difficulty. GCS 15. Head injury instructions given at bedside. No other acute injuries. Patient and family counseled regarding signs and symptoms for which I believe and urgent re- evaluation would be necessary. Patient with good understanding of and agreement to plan and is comfortable going home at this time This document was made in part using voice recognition software. While efforts are made to proofread this document, sound alike and grammatical errors may occur. Patient will follow-up with her PCP for suture removal in 10 to 14 days. Departure - Departure Disposition: 01 Home, Self Care Clinical Impression: Facial contusion Qualifiers: Encounter type: initial encounter Qualified Code(s): S00.83XA - Contusion of other part of head, initial encounter Facial laceration Qualifiers: Encounter type: initial encounter Qualified Code(s): S01.81XA - Laceration without foreign body of other part of head, initial encounter Knee contusion Qualifiers: Encounter type: initial encounter Condition: Good Instructions: ED Contusion Lower Ext, ED Laceration Facial Sutr Tape Follow-Up: Gertrudis Horne MD [Primary Care Provider] - Prescriptions: traMADol [Ultram] 50 - 100 mg PO Q6H PRN #14 tablet PRN Reason: back pain Comments: Your medication was sent to [facility] in [place]. Please follow-up with your doctor in approximately 14 days for suture removal. Return if you notice redness, swelling or drainage from the wound. You can apply ice today to help with the swelling to help stop the bleeding. Please return if you worsen including altered mental status, vomiting, seizures or other new or worrisome symptoms. You were given a tetanus shot today as well. Your head CT, cervical spine CT and maxillofacial CT do not show any fractures today or intracranial bleeding. Forms: PCP List Discharge Date/Time: 02/24/23 13:07
[2023-02-24] MEDS ORDERED: TETANUS/DIPHTHERIA/PERTUSSIS 0.5 ML SYRINGE IM ONE (11:57)
[2023-02-24 13:06] VITALS: BP 165/82; O2SAT 100
== END 2023-02-24 13:07 | disposition home or self-care (01) ==
LOC: EDUNIT# → ED 10:31
DX: S01.81XA Laceration without foreign body of other part of head, initial encounter (principal); W18.30XA Fall on same level, unspecified, initial encounter; E11.9 Type 2 diabetes mellitus without complications; Z79.01 Long term (current) use of anticoagulants; Z23 Encounter for immunization
CPT/HCPCS: 12053; 36415; 90471; 99284